=== PATIENT | male | born 1970 | race Caucasian/White ===

== ENCOUNTER 2019-03-28 10:39 | Emergency (ER) | payer OTHER ==
[~2019-03-28] VITALS: Ht 180.3 cm; Wt 78.9 kg
[~2019-03-28 10:39] MED LIST: DARVOCET N 1001 TAB PO
[2019-03-28] MEDS ORDERED: NAPROSYN500 MG PO (12:28)
[2019-03-28] MEDS ORDERED: TYLENOL325 M1 PO (12:28)
== END 2019-03-28 12:36 | disposition home or self-care (01) ==
LOC: ED 10:39
DX: S50.312A Abrasion of left elbow, initial encounter (principal); F17.200 Nicotine dependence, unspecified, uncomplicated; M79.632 Pain in left forearm; M79.622 Pain in left upper arm; W10.8XXA Fall (on) (from) other stairs and steps, initial encounter; Y93.89 Activity, other specified; Y92.89 Other specified places as the place of occurrence of the external cause; Y99.8 Other external cause status

== ENCOUNTER → 2019-04-17 | Outpatient (CLI) | payer OTHER ==
[~2019-04-17] MED LIST changes: +NAPROSYN500 MG PO; +TYLENOL325 M1 PO
== END | disposition home or self-care (01) ==
LOC: MRI 01:15
DX: S50.02XA Contusion of left elbow, initial encounter (principal); S46.312A Strain of muscle, fascia and tendon of triceps, left arm, initial encounter; M19.012 Primary osteoarthritis, left shoulder

== ENCOUNTER 2020-01-01 18:33 | Emergency (ER) | payer OTHER ==
[~2020-01-01] VITALS: Ht 180.3 cm; Wt 83.9 kg
[2020-01-01 18:44] VITALS: BP 129/84
[2020-01-01 19:39] LABS: BASO # 0.1 10*3/uL (0.0-0.1); BASO % 1.6 % (0.0-1.0); EOS # 0.1 10*3/uL (0.0-0.4); EOS % 1.4 % (1.0-4.0); LYMPH # 2.8 10*3/uL (1.3-4.4); LYMPH % 31.3 % (27.0-41.0); MEAN CELL VOLUME 91.3 fl (80.0-94.0); MEAN CORPUSCULAR HGB 30.1 pg (27.0-31.0); MEAN PLATELET VOLUME 10.3 fl (9.6-12.3); MONO # 0.6 10*3/uL (0.1-1.0); MONO % 6.4 % (3.0-9.0); NEUT # 5.2 10*3/uL (2.3-7.9); NEUT % 59.2 % (47.0-73.0); PLATELET COUNT AUTOMATED 287 10*3/uL (130-400); RED BLOOD COUNT 4.71 10*6/uL (4.50-5.90); RED CELL DISTRI WIDTH 13.1 % (0-14.5); WHITE BLOOD COUNT 8.8 10*3/uL (4.8-10.8)
[2020-01-01 19:54] LABS: ALBUMIN 3.2 gm/dl (3.1-4.5); ALKALINE PHOSPHATASE 108 U/L (45-117); BUN 6 mg/dl (7-24); CHLORIDE 110 mmol/L (98-107); CREATININE 1.24 mg/dL (0.70-1.30); POTASSIUM 3.8 mmol/L (3.5-5.1); SGOT/AST 19 IU/L (3-35); SGPT/ALT 26 U/L (12-78); SODIUM 141 mmol/L (136-145); TOTAL PROTEIN 6.7 gm/dL (6.4-8.2)
--- NOTE | 2020-01-01 20:45 | NUR ---
PT RESTING QUIETLY ON STRETCHER, DENIES COMPLAINTS. AWAITING CT READ. WILL CONTINUE TO MONITOR.
--- NOTE | 2020-01-01 22:07 | NUR ---
PT MEDICATED PER MAR. UPDATED ON POC, PT AWARE HE IS TO BE ADMITTED AND AGREEABLE TO TREATMENT PLAN. DENIES NEEDS AT THIS TIME. WILL CONTINUE TO MONITOR.
--- NOTE | 2020-01-01 22:23 | NUR ---
PT INFORMED BY DR MARIANO THAT [facility]SF[facility]AC[facility] WITH [facility]. PT AWARE AND AGREEABLE TO THIS NEW POC. AWAITING ACCEPTING FACILITY.
--- NOTE | 2020-01-02 00:48 | NUR ---
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
--- NOTE | 2020-01-02 01:10 | NUR ---
UPDATED PT ON TRANSFER STATUS TO [facility] IN [place]. PT VERBALIZED UNDETSTANDING. PT GIVEN NICOTINE PATCH PER REBRYSON. PT GIVEN PILLOW AND BLANKET AND ASSESSED FOR COMFORT. PT DENIES UNMET NEEDS. WILL CONTINUE TO MONITOR.
[2020-01-02 01:25] VITALS: BP 126/78
--- NOTE | 2020-01-02 01:26 | NUR ---
REPORT CALLED TO YI SALGUERO AT [facility]. ALL QUESTIONS AND CONCERNS ANSWERED. AWAITING [facility].
--- NOTE | 2020-01-02 01:40 | NUR ---
TRANSPORT ARRIVED TO TAKE PT TO [facility]. PT STABLE FOR TRANSPORT.
== END 2020-01-02 01:44 | disposition short-term general hospital (02) ==
LOC: ED 18:33 → EDHOLD 22:08 → 4E 22:15 → ED 01-02 01:44
PROVIDERS: Emergency Medicine
DX: L03.211 Cellulitis of face (principal); M54.2 Cervicalgia; H92.01 Otalgia, right ear

== ENCOUNTER → 2020-08-26 | Outpatient (CLI) | payer OTHER | END | disposition home or self-care (01) | LOC: COVID19 14:05 | PROVIDERS: ATTEND Internal Medicine | DX: Z20.822 Contact with and (suspected) exposure to COVID-19 (principal) ==